=== PATIENT | male | born 1985 | race African-American/Black ===

== ENCOUNTER 2020-05-18 16:49 | Emergency (ER) | payer SELFPAY ==
[~2020-05-18] VITALS: Ht 177.8 cm; Wt 72.7 kg
--- NOTE | 2020-05-18 17:12 | ED.ADGEN ---
General Adult EDM: Chief Complaint: ALTERED MENTAL STATUS HPI: HPI: Patient is a 35 year old [f__sex] who presents with [] Review of Systems: Review of Systems: Constitutional: Denies fever or chills. [] Eyes: Denies change in visual acuity. [] HENT: Denies nasal congestion or sore throat. [] Respiratory: Denies cough or shortness of breath. [] Cardiovascular: Denies chest pain or edema. [] GI: Denies abdominal pain, nausea, vomiting, bloody stools or diarrhea. [] : Denies dysuria. [] Musculoskeletal: Denies back pain or joint pain. [] Integument: Denies rash. [] Neurologic: Denies headache, focal weakness or sensory changes. [] Endocrine: Denies polyuria or polydipsia. [] Lymphatic: Denies swollen glands. [] Psychiatric: Denies depression or anxiety. [] Current Medications: Current Medications Medications (Trade) Dose Ordered Sig/Julius Start Time Stop Time Status Last Admin Dose Admin Ammonia (Aromatic Spirit) (Amoply) 1 each STK-MED ONCE 05/18/20 19:52 05/18/20 19:52 DC Levetiracetam 1000 mg/Dextrose 110 ml @ 440 mls/hr 1X ONCE 05/18/20 18:00 05/18/20 18:14 DC 05/18/20 18:11 440 MLS/HR Sodium Chloride 1,000 ml @ 1,000 mls/hr 1X ONCE 05/18/20 19:45 05/18/20 20:44 Allergies: Allergies: Allergies Coded Allergies Type Severity Reaction Last Updated Verified Unable to Assess 05/18/20 No Physical Exam: PE: Constitutional: Well developed, well nourished, no acute distress, non-toxic appearance. [] HENT: Normocephalic, atraumatic, bilateral external ears normal, oropharynx moist, no oral exudates, nose normal. [] Eyes: PERRLA, EOMI, conjunctiva normal, no discharge. [] Neck: Normal range of motion, no tenderness, supple, no stridor. [] Cardiovascular:Heart rate regular rhythm, no murmur [] Lungs & Thorax: Bilateral breath sounds clear to auscultation [] Abdomen: Bowel sounds normal, soft, no tenderness, no masses, no pulsatile masses. [] Skin: Warm, dry, no erythema, no rash. [] Back: No tenderness, no CVA tenderness. [] Extremities: No tenderness, no cyanosis, no clubbing, ROM intact, no edema. [] Neurologic: Alert and oriented X 3, normal motor function, normal sensory function, no focal deficits noted. [] Psychologic: Affect normal, judgement normal, mood normal. [] Current Patient Data: Labs: Laboratory Tests Test 05/18/20 17:00 05/18/20 17:10 White Blood Count 7.9 x10^3/uL (4.0-11.0) Red Blood Count 5.11 x10^6/uL (4.30-5.70) Hemoglobin 16.0 g/dL (13.0-17.5) Hematocrit 48.0 % (39.0-53.0) Mean Corpuscular Volume 94 fL (79-100) Mean Corpuscular Hemoglobin 31 pg (25-35) Mean Corpuscular Hemoglobin Concent 33 g/dL (31-37) Red Cell Distribution Width 13.2 % (11.5-14.5) Platelet Count 226 x10^3/uL (140-400) Neutrophils (%) (Auto) 59 % (31-73) Lymphocytes (%) (Auto) 30 % (24-48) Monocytes (%) (Auto) 10 % (0-9) H Eosinophils (%) (Auto) 1 % (0-3) Basophils (%) (Auto) 1 % (0-3) Neutrophils # (Auto) 4.7 x10^3/uL (1.8-7.7) Lymphocytes # (Auto) 2.3 x10^3/uL (1.0-4.8) Monocytes # (Auto) 0.8 x10^3/uL (0.0-1.1) Eosinophils # (Auto) 0.1 x10^3/uL (0.0-0.7) Basophils # (Auto) 0.0 x10^3/uL (0.0-0.2) Sodium Level 138 mmol/L (136-145) Potassium Level 4.1 mmol/L (3.5-5.1) Chloride Level 100 mmol/L (98-107) Carbon Dioxide Level 15 mmol/L (21-32) L Anion Gap 23 (6-14) H Blood Urea Nitrogen 17 mg/dL (8-26) Creatinine 1.9 mg/dL (0.7-1.3) H Estimated GFR (Cockcroft-Gault) 40.8 BUN/Creatinine Ratio 9 (6-20) Glucose Level 120 mg/dL (70-99) H Lactic Acid Level 14.7 mmol/L (0.4-2.0) *H Calcium Level 9.1 mg/dL (8.5-10.1) Total Bilirubin 0.7 mg/dL (0.2-1.0) Aspartate Amino Transferase (AST) 35 U/L (15-37) Alanine Aminotransferase (ALT) 36 U/L (16-63) Alkaline Phosphatase 64 U/L (46-116) Total Protein 8.0 g/dL (6.4-8.2) Albumin 4.3 g/dL (3.4-5.0) Albumin/Globulin Ratio 1.2 (1.0-1.7) Ethyl Alcohol Level < 10 mg/dL (0-10) Urine Collection Type Unknown Urine Color Yellow Urine Clarity Clear Urine pH 6.0 (<5.0-8.0) Urine Specific [place] 1.020 (1.000-1.030) Urine Protein 100 mg/dL (NEG-TRACE) Urine Glucose (UA) Negative mg/dL (NEG) Urine Ketones (Stick) Negative mg/dL (NEG) Urine Blood Small (NEG) Urine Nitrite Negative (NEG) Urine Bilirubin Negative (NEG) Urine Urobilinogen Dipstick 0.2 mg/dL (0.2 mg/dL) Urine Leukocyte Esterase Negative (NEG) Urine RBC 1-2 /HPF (0-2) Urine WBC 1-4 /HPF (0-4) Urine Squamous Epithelial Cells Few /LPF Urine Bacteria 0 /HPF (0-FEW) Urine Hyaline Casts Many /HPF Urine Mucus Marked /LPF Urine Opiates Screen Neg (NEG) Urine Methadone Screen Neg (NEG) Urine Barbiturates Neg (NEG) Urine Phencyclidine Screen Neg (NEG) Urine Amphetamine/Methamphetamine Pos (NEG) Urine Benzodiazepines Screen Neg (NEG) Urine Cocaine Screen Pos (NEG) Urine Cannabinoids Screen Pos (NEG) Urine Ethyl Alcohol Neg (NEG) Laboratory Tests 05/18/20 17:00 Laboratory Tests 05/18/20 17:00 Vital Signs: Vital Signs Date Time Temp Pulse Resp B/P (MAP) Pulse Ox O2 Delivery O2 Flow Rate FiO2 05/18/20 19:30 82 14 147/66 (93) 100 Room Air 05/18/20 16:49 98.3 98.3 EKG: EKG: [] Heart Score: Risk Factors: Risk Factors: DM, Current or recent (<one month) smoker, HTN, HLP, family history of CAD, obesity. Risk Scores: Score 0 - 3: 2.5% MACE over next 6 weeks - Discharge Home Score 4 - 6: 20.3% MACE over next 6 weeks - Admit for Clinical Observation Score 7 - 10: 72.7% MACE over next 6 weeks - Early Invasive Strategies Radiology/Procedures: Radiology/Procedures: [] Impression: The visualized portions of the paranasal sinuses and mastoid air cells are well- pneumatized. No acute fractures. IMPRESSION: No acute intracranial abnormality. Exposure: One or more of the following in the visualized dose reduction techniques were utilized for this examination: 1. Automated exposure control 2. Adjustment of the MA and/or KV according to patient size Use of iterative of reconstructive technique Course & Med Decision Making: Course & Med Decision Making Pertinent Labs and Imaging studies reviewed. (See chart for details) [] Assumed care at shift change disposition pending patient reevaluation. Patient would not awaken for previous provider. Pending patient awaking up---- patient is under arrest and [facility] has requested [facility] to call. Ammonia salt was used---- patient awakened eloped out of the ER with IV in place. [facility]. No discharge paper work provided to patient. Anali Disclaimer: Anali Disclaimer: This electronic medical record was generated, in whole or in part, using a voice recognition dictation system. Departure Departure Impression: Primary Impression: Altered mental status Additional Impression: Seizure Disposition: 07 AMA/ELOPED/LWBS Condition: STABLE Problem Qualifiers BELGICA ADORNO MD May 18, 2020 17:12 MAIDA GARZA DO May 18, 2020 20:02
[2020-05-18 17:15] LABS: BASO % 1 % (0-3); EOS # 0.1 x10^3/uL (0.0-0.7); EOS % 1 % (0-3); LYMPH # 2.3 x10^3/uL (1.0-4.8); LYMPH % 30 % (24-48); MEAN CORPUSCULAR HEMOGLOBIN 31 pg (25-35); MEAN CORPUSCULAR HGB CONC 33 g/dL (31-37); MEAN CORPUSCULAR VOLUME 94 fL (79-100); MONO # 0.8 x10^3/uL (0.0-1.1); MONO % 10 % (0-9); NEUT # 4.7 x10^3/uL (1.8-7.7); NEUT % 59 % (31-73); PLATELET COUNT 226 x10^3/uL (140-400); RED BLOOD COUNT 5.11 x10^6/uL (4.30-5.70); RED CELL DISTRIBUTION WIDTH 13.2 % (11.5-14.5); WHITE BLOOD COUNT 7.9 x10^3/uL (4.0-11.0)
[2020-05-18 17:27] LABS: CALCIUM 9.1 mg/dL (8.5-10.1); CREATININE 1.9 mg/dL (0.7-1.3); GFR 40.8; POTASSIUM 4.1 mmol/L (3.5-5.1)
[2020-05-18 17:42] LABS: ALBUMIN 4.3 g/dL (3.4-5.0); ALBUMIN/GLOBULIN RATIO 1.2 (1.0-1.7); TOTAL BILIRUBIN 0.7 mg/dL (0.2-1.0)
[2020-05-18] MEDS ORDERED: IV NORMAL SALINE 1000ML BAG 1,000 ML IV ONE ×2 (17:45→19:45)
--- NOTE | 2020-05-18 17:55 | RAD ---
INDICATION: Reason: AMS / Spl. Instructions: / History: COMPARISON: None. FINDINGS: Single view of chest obtained. Cardiac silhouette is unremarkable. There is some limitation secondary to object external to the patient. Multiple lines are seen project ing over the upper lungs without well-defined consolidation. IMPRESSION: * Limited assessment secondary to objects external to the patient limiting evaluation of the lung ap ices with multiple overlapping lines seen within the region. These could all be secondary to objects external to the patient but if there is any clinical concern for pneumothorax the exam could be repea marquis after removing these objects given that these could obscure a pneumothorax. * No definite focal consolidation. Electronically signed by: Akhil Brenner MD (05/18/2020 5:53 PM) [id number]
[2020-05-18] MEDS ORDERED: levETIRAcetam 1,000 MG in IV DEXTROSE 5% 100ML 100 ML IV ONE (18:00)
[2020-05-18 18:04] LABS: BILIRUBIN,URINE NEGATIVE (NEG); CLARITY,URINE CLEAR; COLOR,URINE YELLOW; NITRITE,URINE NEGATIVE (NEG); PROTEIN,URINE 100 mg/dL (NEG-TRACE); UROBILINOGEN,URINE 0.2 mg/dL (0.2 mg/dL)
--- NOTE | 2020-05-18 18:07 | EKG ---
[facility] [address] [place] [address] Test Date: 2020-05-18 Test Time: 16:58:33 Pat Name: ROSY MORALES Department: Room: Gender: Art Educator: CECILIA : 1985 Requested By: BELGICA ADORNO Order Number: [id number] Reading MD: Measurements Intervals [place] Rate: 103 P: 46 NC: 132 QRS: 62 QRSD: 78 T: 38 QT: 312 QTc: 411 Interpretive Statements SINUS TACHYCARDIA OTHERWISE NORMAL ECG RI6.02 No previous ECG available for comparison
--- NOTE | 2020-05-18 18:09 | RAD ---
Exam: CT head INDICATION: Altered mental status TECHNIQUE: Sequential axial images through the head were obtained without the administration of IV co ntrast. Comparisons: None FINDINGS: No focal parenchymal lesion or hemorrhage is identified. There is no midline shift or sulcal effaceme nt. No acute vascular territory infarction is identified. Oliver-white distinction is preserved. The ventricular system is within normal limits without compression hydrocephalus. The basal cisterns are well maintained. The visualized portions of the paranasal sinuses and mastoid air cells are well-pneumatized. No acute fractures. IMPRESSION: No acute intracranial abnormality. Exposure: One or more of the following in the visualized dose reduction techniques were utilized for this examination: 1. Automated exposure control 2. Adjustment of the MA and/or KV according to patient size Use of iterative of reconstructive technique Electronically signed by: Tamika Christie MD (05/18/2020 6:07 PM) [facility]
[2020-05-18 18:13] LABS: BARBITURATES NEG (NEG); BENZODIAZEPINES NEG (NEG); CANNABINOIDS POS (NEG); COCAINE POS (NEG); METHADONE NEG (NEG); OPIATES NEG (NEG); PHENCYCLIDINE NEG (NEG)
[2020-05-18 18:16] LABS: AMPHETAMINE/METHAMPHETAMINE POS (NEG)
[2020-05-18 18:19] LABS: HYALINE CASTS, URINE MANY /HPF
[2020-05-18 18:20] LABS: BACTERIA,URINE 0 /HPF (0-FEW)
[2020-05-18 19:30] VITALS: BP 147/66
[2020-05-18] MEDS ORDERED: AMMONIA AROMATIC 15% INHALANT AMPUL. ONE (19:52)
== END 2020-05-18 20:30 | disposition left against medical advice (07) ==
LOC: EEVIPCON 16:49 → ER 16:49
DX: R41.82 Altered mental status, unspecified (principal); R56.9 Unspecified convulsions
CPT/HCPCS: 36415; 70450; 71045; 80053; 80307; 81001; 83605; 85025; 93005; 96365; 96366; 99285; G0480; J1953; J7030; J7060